=== PATIENT | male | born 2000 | race Caucasian/White ===

== ENCOUNTER 2020-02-02 22:36 | Emergency (ER) | payer BC ==
[~2020-02-02] VITALS: Ht 170.2 cm; Wt 75.0 kg
[2020-02-02 22:52] VITALS: BP 110/63; TEMP 98.3
[2020-02-02 23:40] VITALS: PULSE 77
== END 2020-02-02 23:40 | disposition home or self-care (01) ==
LOC: COL.ER 22:36
DX: S60.221A Contusion of right hand, initial encounter (principal); W22.01XA Walked into wall, initial encounter; Y92.009 Unspecified place in unspecified non-institutional (private) residence as the place of occurrence of the external cause